=== PATIENT | male | born 1990 ===

== ENCOUNTER 2018-06-23 11:06 | Emergency (ER) | payer SELFPAY ==
[2018-06-23 11:15] VITALS: RESP 20; TEMP 97.6
--- NOTE | 2018-06-23 12:06 | C.PDOC ---
History Of Present Illness 27 y/o male comes in to ED complaining of a nonproductive cough, runny nose, sore throat, and headache for the past 4 days. Patient also states that he fell 3 days ago on his low back and complains of lower back pain. Otherwise she denies any head injury, LOC, or other complaints. Time Seen by Provider: 06/23/18 11:17 Chief Complaint (Nursing): Cough, Cold, Congestion History Per: Patient History/Exam Limitations: no limitations Onset/Duration Of Symptoms: Days Current Symptoms Are (Timing): Still Present Past Medical History Reviewed: Historical Data, Nursing Documentation, Vital Signs Vital Signs: Last Vital Signs Temp 97.6 F 06/23/18 11:12 Pulse 84 06/23/18 11:12 Resp 20 06/23/18 11:12 BP 143/84 06/23/18 11:12 Pulse Ox 97 06/23/18 11:12 Family History: States: No Known Family Hx - Social History Hx Alcohol Use: No Hx Substance Use: No - Immunization History Hx Tetanus Toxoid Vaccination: No Hx Influenza Vaccination: No Hx Pneumococcal Vaccination: No Review Of Systems Constitutional: Negative for: Fever, Chills ENT: Positive for: Nose Discharge, Throat Pain (sore throat) Respiratory: Positive for: Cough (nonproductive) Musculoskeletal: Positive for: Back Pain (lower). Negative for: Leg Pain Neurological: Positive for: Headache. Negative for: Other (LOC) Physical Exam - Physical Exam Appears: Non-toxic, No Acute Distress Skin: Warm, Dry Head: Atraumatic, Normacephalic Eye(s): bilateral: Normal Inspection Nose: Discharge (rhinorrhea) Oral Mucosa: Moist Throat: Erythema (mild) Cardiovascular: Rhythm Regular, No Murmur Respiratory: Normal Breath Sounds, No Rales, No Rhonchi, No Wheezing Back: Other (Lumbar spine abrasion around L3 level, mildly tender to palpation) Extremity: Bilateral: Normal Color And Temperature, Normal ROM Neurological/Psych: Oriented x3, Normal Speech ED Course And Treatment O2 Sat by Pulse Oximetry: 97 (RA) Pulse Ox Interpretation: Normal - Other Rad Lumbar Spine XR X-Ray: Read By Radiologist Interpretation: FINDINGS: BONES: Normal alignment. No listhesis. No fracture. DISC SPACES: Unremarkable. OTHER FINDINGS: None. IMPRESSION: No radiographic evidence of acute fracture or subluxation. Progress Note: Gave motrin and tessalon PO. Lumbar spine XR ordered and was normal. Patient will be discharged home. Disposition Counseled Patient/Family Regarding: Studies Performed, Diagnosis, Need For Followup, Rx Given - Disposition Referrals: [facility] [Outside] Disposition: HOME/ ROUTINE Disposition Time: 12:05 Condition: STABLE Additional Instructions: SEGUIR CON NEWELL MDICO EN 1-2 RUDD UTILICE MEDICAMENTOS IVA SE DIRIGE VUELVA A LA MALCOLM DE EMERGENCIA SI CHEO SNTOMAS SE HACEN PEOR FOLLOW UP WITH YOUR DOCTOR IN 1-2 DAYS USE MEDICATIONS DIRECTED RETURN TO EMERGENCY ROOM IF YOUR SYMPTOMS BECOME WORSE Prescriptions: Benzonatate [Tessalon Perles] 100 mg PO BID PRN #15 sgl PRN Reason: Cough Ibuprofen [Motrin Tab] 600 mg PO Q6 PRN #30 tab PRN Reason: fever/pain Pseudoephedrine [Sudafed] 60 mg PO Q6 PRN #12 tab PRN Reason: Nasal Congestion Instructions: Low Back Pain (DC), Upper Respiratory Infection (ED) Forms: [employer] (Vietnamese) Print Language: DOMINICAN - Clinical Impression Clinical Impression: Viral disease, Upper respiratory infection, Lumbar back sprain - Scribe Statement The provider has reviewed the documentation as recorded by the Alexia Smith Provider Attestation: All medical record entries made by the Arthuribdariusz were at my direction and personally dictated by me. I have reviewed the chart and agree that the record accurately reflects my personal performance of the history, physical exam, medical decision making, and the department course for this patient. I have also personally directed, reviewed, and agree with the discharge instructions and disposition.
[2018-06-23 12:14] VITALS: BP 135/76; PULSE 80
[2018-06-23 15:08] VITALS: O2SAT 97
--- NOTE | 2018-06-23 17:15 | RAD ---
Date of service: 06/23/2018 PROCEDURE: Radiographs of the Lumbar Spine. HISTORY: low back pain after fall COMPARISON: No prior. FINDINGS: BONES: Normal alignment. No listhesis. No fracture. DISC SPACES: Unremarkable. OTHER FINDINGS: None. IMPRESSION: No radiographic evidence of acute fracture or subluxation.
== END 2018-06-23 12:14 | disposition home or self-care (01) ==
LOC: C.ER 11:06
DX: J06.9 Acute upper respiratory infection, unspecified (principal); S33.5XXA Sprain of ligaments of lumbar spine, initial encounter; W19.XXXA Unspecified fall, initial encounter